=== PATIENT | female | born 1980 | race American Indian/Alaskan Native ===

== ENCOUNTER 2020-04-29 21:44 | Emergency (ER) | payer SELFPAY ==
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
[2020-04-29] MEDS ORDERED: Sodium Chloride 0.9% 1,000 ML IV ONE (22:09)
[2020-04-29] MEDS ORDERED: LORazepam 2 MG/ML SDV IVPUSH ONE (22:09)
[2020-04-29 22:23] LABS: ANION GAP 14.8 mEq/L (7-13); CHLORIDE,CL 105 mmol/L (98-107); SODIUM,NA 142 mmol/L (136-145)
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
== END 2020-04-29 23:02 ==
LOC: EDBD → DL.ED 21:44
DX: S00.83XA Contusion of other part of head, initial encounter (principal); S00.31XA Abrasion of nose, initial encounter; F10.129 Alcohol abuse with intoxication, unspecified; W01.10XA Fall on same level from slipping, tripping and stumbling with subsequent striking against unspecified object, initial encounter; W50.0XXA Accidental hit or strike by another person, initial encounter
CPT/HCPCS: 36415; 70450; 70486; 72125; 73030; 80053; 80307; 85025; 96374; 99284; J2060; J7030; 99283

== ENCOUNTER 2021-03-30 07:32 | Emergency (ER) | payer SELFPAY ==
--- NOTE | 2021-03-30 08:32 | EDM.PDOC ---
ED HPI GENERAL MEDICAL PROBLEM - General Chief Complaint: General Stated Complaint: FATIGUE Time Seen by Provider: 03/30/21 07:45 Source of Information: Reports: Patient, Old Records, RN, RN Notes Reviewed History Limitations: Reports: No Limitations - History of Present Illness INITIAL COMMENTS - FREE TEXT/NARRATIVE: Pt presents to ER with c/o fatigue, mild shaking, and feeling drowsy but cannot sleep. Pt admits that she drank alcohol last night. She takes multiple medications that have drowsy side effects, but she has taken all of them for "a long time". Pt refused to answer most standard Hx questions from the triage nurse and told her "those things are none of your business". Pt continued to be vague and elusive in answering HPI questions for me, but states she "just wants to have some tests to make sure everything is ok". She refuses to answer regarding drug use, and refuses to provide a urine specimen. Onset: Unknown/Unsure Location: Reports: Generalized Improves with: Reports: None Worsens with: Reports: None Associated Symptoms: Reports: No Other Symptoms - Related Data Allergies Allergy/AdvReac Type Severity Reaction Status Date / Time No Known Allergies Allergy Verified 03/30/21 08:03 Home Meds: Home Meds . [No Known Home Meds] 04/29/20 [History] Past Medical History - Past Health History Medical/Surgical History: Denies Medical/Surgical History HEENT History: Reports: None Cardiovascular History: Reports: None Respiratory History: Reports: None Gastrointestinal History: Reports: None Genitourinary History: Reports: None COAT TAILOR History: Reports: None Musculoskeletal History: Reports: None Neurological History: Reports: None Psychiatric History: Reports: Anxiety, Depression Endocrine/Metabolic History: Reports: None Hematologic History: Reports: None Immunologic History: Reports: None Oncologic (Cancer) History: Reports: None Dermatologic History: Reports: None - Infectious Disease History Infectious Disease History: Reports: None - Past Surgical History Head Surgeries/Procedures: Reports: None Social & Family History - Family History Family Medical History: No Pertinent Family History - Tobacco Use Tobacco Use Status *Q: Current Every Day Tobacco User Tobacco Use Within Last Twelve Months: Cigarettes - Caffeine Use Caffeine Use: Reports: None - Alcohol Use Days Per Week of Alcohol Use: 5 Number of Drinks Per Day: 10 Total Drinks Per Week: 50 - Recreational Drug Use Recreational Drug Use: No ED ROS GENERAL - Review of Systems Review Of Systems: Unable To Obtain Reason Not Obtained: Pt refuses to answer ROS questions ED EXAM, GENERAL - Physical Exam Exam: See Below Exam Limited By: No Limitations General Appearance: Alert, WD/WN, No Apparent Distress Eye Exam: Bilateral Eye: Normal Inspection Nose: Normal Inspection, Normal Mucosa, No Blood Throat/Mouth: Normal Lips, Normal Voice, No Airway Compromise Head: Atraumatic, Normocephalic Neck: Normal Inspection, Supple, Non-Tender, Full Range of Motion Respiratory/Chest: No Respiratory Distress, Lungs Clear, Normal Breath Sounds, No Accessory Muscle Use, Chest Non-Tender Cardiovascular: Regular Rate, Rhythm, Tachycardia GI/Abdominal: Normal Bowel Sounds, Soft, Non-Tender, No Organomegaly Back Exam: Normal Inspection, Full Range of Motion Extremities: Normal Inspection Neurological: Alert, Oriented, CN II-XII Intact, No Motor/Sensory Deficits Psychiatric: Anxious Skin Exam: Warm, Dry, Intact, Normal Color, No Rash Course - Vital Signs Last Recorded V/S: Last Vital Signs Temp 98.2 F 03/30/21 07:55 Pulse 121 H 03/30/21 07:55 Resp 18 03/30/21 07:55 BP 128/74 03/30/21 07:55 Pulse Ox 97 03/30/21 07:55 - Orders/Labs/Meds Orders: Active Orders 24 hr Category Date Time Status CBC WITH AUTO DIFF [HEME] Stat Lab 03/30/21 08:15 Ordered COMPREHENSIVE METABOLIC PN,CMP [CHEM] Stat Lab 03/30/21 08:15 Ordered DRUG SCREEN URINE BIORAD [URCHEM] Stat Lab 03/30/21 08:15 Ordered ETHANOL BLOOD MEDICAL [CHEM] Stat Lab 03/30/21 08:15 Ordered HCG QUALITATIVE,URINE [URCHEM] Stat Lab 03/30/21 08:15 Ordered MAGNESIUM [CHEM] Stat Lab 03/30/21 08:15 Ordered TSH ULTRASENSITIVE [CHEM] Stat Lab 03/30/21 08:15 Ordered UA RFX DAVID AND CULT IF INDIC [URIN] Stat Lab 03/30/21 08:15 Ordered - Re-Assessments/Exams Free Text/Narrative Re-Assessment/Exam: 03/30/21 08:35 Pt refused lab draw and urine specimen, then left AMA without waiting to discuss her decision to leave AMA with me. Departure - Departure Time of Disposition: 08:36 Disposition: Against Medical Advice 07 Condition: Undetermined Clinical Impression: Left against medical advice - Discharge Information *PRESCRIPTION DRUG MONITORING PROGRAM REVIEWED*: No *COPY OF PRESCRIPTION DRUG MONITORING REPORT IN PATIENT MARLENE: No Forms: ED Department Discharge, Refusal of Care AMA Sepsis Event Note (ED) - Evaluation Sepsis Screening Result: No Definite Risk - Focused Exam Vital Signs: Vital Signs Temp Pulse Resp BP Pulse Ox 03/30/21 07:55 98.2 F 121 H 18 128/74 97 - My Orders Last 24 Hours: My Active Orders 03/30/21 08:15 CBC WITH AUTO DIFF [HEME] Stat COMPREHENSIVE METABOLIC PN,CMP [CHEM] Stat DRUG SCREEN URINE BIORAD [URCHEM] Stat ETHANOL BLOOD MEDICAL [CHEM] Stat HCG QUALITATIVE,URINE [URCHEM] Stat MAGNESIUM [CHEM] Stat TSH ULTRASENSITIVE [CHEM] Stat UA RFX DAVID AND CULT IF INDIC [URIN] Stat - Assessment/Plan Last 24 Hours: My Active Orders 03/30/21 08:15 CBC WITH AUTO DIFF [HEME] Stat COMPREHENSIVE METABOLIC PN,CMP [CHEM] Stat DRUG SCREEN URINE BIORAD [URCHEM] Stat ETHANOL BLOOD MEDICAL [CHEM] Stat HCG QUALITATIVE,URINE [URCHEM] Stat MAGNESIUM [CHEM] Stat TSH ULTRASENSITIVE [CHEM] Stat UA RFX DAVID AND CULT IF INDIC [URIN] Stat
[2021-03-30 08:59] LABS: ANION GAP 13.3 mEq/L (7-13); CHLORIDE,CL 102 mmol/L (98-107); SODIUM,NA 140 mmol/L (136-145)
== END 2021-03-30 08:33 | disposition left against medical advice (07) ==
LOC: DL.ED 07:32
DX: R53.83 Other fatigue (principal); R40.0 Somnolence; Z72.0 Tobacco use
CPT/HCPCS: 36415; 80053; 80307; 83735; 84443; 85025; 99282; 99283

== ENCOUNTER 2021-03-30 11:34 | Emergency (ER) | payer SELFPAY ==
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
[2021-03-30 12:32] LABS: CHLORIDE,CL 102 mmol/L (98-107); SODIUM,NA 137 mmol/L (136-145)
[2021-03-30] MEDS ORDERED: Lactulose Soln 10 GM/15 ML 30 ML UD Cup PO ONE (12:39)
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
== END 2021-03-30 12:47 | disposition home or self-care (01) ==
LOC: DL.ED 11:34
DX: K59.00 Constipation, unspecified (principal)
CPT/HCPCS: 36415; 74019; 80053; 80305-QW; 80307; 81003; 81025; 82150; 83690; 85025; 99282; 99284-25

== ENCOUNTER 2022-04-05 10:18 | Inpatient (IN) | payer MEDICAID ==
[2022-04-05] MEDS ORDERED: Sodium Chloride 0.9% 10 ML Syringe FLUSH PRN (10:55)
[2022-04-05] MEDS ORDERED: MVI, Adult with Vitamin K 10 ML, Thiamine 100 MG, Folic Acid 1 MG in Lactated Ringers 1... IV ONE ×4 (10:56)
[2022-04-05] MEDS ORDERED: LORazepam 2 MG/ML SDV IVPUSH ONE (10:57)
[2022-04-05 11:23] LABS: ANION GAP 13.8 mEq/L (7-13); CHLORIDE,CL 103 mmol/L (98-107); SODIUM,NA 139 mmol/L (136-145)
[2022-04-05 11:32] LABS: PTT,PARTIAL THROMBOPLSTIN TIME 25.2 SEC (22.0-34.0)
[2022-04-05 11:49] LABS: AMPHETAMINES,URINE NEGATIVE (NEGATIVE); BARBITURATES,URINE NEGATIVE (NEGATIVE); BENZODIAZEPINE,URINE NEGATIVE (NEGATIVE); MDMA (ECSTASY), URINE NEGATIVE (NEGATIVE); METHADONE,URINE NEGATIVE (NEGATIVE); METHAMPHETAMINES,URINE NEGATIVE (NEGATIVE); OPIATES,URINE NEGATIVE (NEGATIVE); OXYCODONE,URINE NEGATIVE (NEGATIVE); PHENCYCLIDINE,URINE NEGATIVE (NEGATIVE); TCA,URINE NEGATIVE (NEGATIVE)
[2022-04-05] MEDS ORDERED: Docusate Sodium 100 MG Cap PO PRN (13:00)
[2022-04-05] MEDS ORDERED: Albuterol/Ipratropium 3.0-0.5 MG/3 ML Neb Soln NEB PRN (13:00)
[2022-04-05] MEDS ORDERED: Acetaminophen 325 MG Tab PO PRN (13:00)
[2022-04-05] MEDS ORDERED: Polyethylene Glycol 3350 Powder 17 GM Packet PO PRN (13:00)
[2022-04-05] MEDS ORDERED: Ketorolac 30 MG/ML SDV IVPUSH PRN (13:00)
[2022-04-05] MEDS ORDERED: Bisacodyl 5 MG Tab PO PRN (13:00)
[2022-04-05] MEDS ORDERED: HYDROmorphone 0.5 MG/0.5 ML Syringe IVPUSH PRN (13:00)
[2022-04-05] MEDS ORDERED: Magnesium Hydroxide 400 MG/5 ML Susp 30 ML Cup PO PRN (13:00)
[2022-04-05] MEDS ORDERED: Ondansetron 4 MG/2 ML SDV IVPUSH PRN (13:00)
[2022-04-05] MEDS ORDERED: cloNIDine 0.1 MG Tab PO PRN (13:02)
[2022-04-05] MEDS ORDERED: Haloperidol Lactate 5 MG/ML SDV IM PRN (13:02)
[2022-04-05] MEDS ORDERED: Flumazenil 0.1 MG/ML 5 ML MDV IVPUSH PRN (13:04)
[2022-04-05] MEDS ORDERED: LORazepam 2 MG/ML SDV IVPUSH PRN ×3 (13:04→13:26)
[2022-04-05] MEDS ORDERED: hydrALAZINE 20 MG/ML SDV IVPUSH PRN (13:05)
[2022-04-05] MEDS ORDERED: Metoprolol Tartrate 5 MG/5 ML SDV IVPUSH PRN (13:05)
[2022-04-05] MEDS ORDERED: Sodium Chloride 0.9% 1,000 ML IV SCH (13:45)
[2022-04-05] MEDS: LORazepam 1 MG Tab PO PRN ×2 (13:54→22:20)
[2022-04-05] MEDS: Nicotine 21 MG/24 Hr Patch TRDERM ONE ×2 (13:55→14:00)
[2022-04-05] MEDS: Famotidine 20 MG/2 ML SDV IVPUSH SCH (20:37)
[2022-04-05] MEDS: Check Patch *NICOTINE TRDERM SCH (20:40)
[2022-04-06 06:56] LABS: ANION GAP 11.1 mEq/L (7-13); CHLORIDE,CL 108 mmol/L (98-107); SODIUM,NA 142 mmol/L (136-145)
[2022-04-06] MEDS: Famotidine 20 MG/2 ML SDV IVPUSH SCH (08:21)
[2022-04-06] MEDS: Check Patch *NICOTINE TRDERM SCH (08:21)
[2022-04-06] MEDS ORDERED: Multivitamin Tab PO SCH (09:00)
[2022-04-06] MEDS ORDERED: Thiamine 100 MG Tab PO SCH (09:00)
[2022-04-06] MEDS ORDERED: Folic Acid 1 MG Tab PO SCH (09:00)
[2022-04-06] MEDS ORDERED: Nicotine 14 MG/24 Hr Patch TRDERM SCH ×2 (09:00)
== END 2022-04-06 10:40 | disposition left against medical advice (07) | DRG 894 ==
LOC: DL.ED 10:18 → DL.MS 12:29 → DL.ED 12:36
PROVIDERS: ADMIT Internal Medicine; ATTEND Internal Medicine
DX: F10.230 Alcohol dependence with withdrawal, uncomplicated (principal); R44.0 Auditory hallucinations; F17.210 Nicotine dependence, cigarettes, uncomplicated; F17.220 Nicotine dependence, chewing tobacco, uncomplicated; R73.9 Hyperglycemia, unspecified; F43.9 Reaction to severe stress, unspecified; F15.10 Other stimulant abuse, uncomplicated; Z20.822 Contact with and (suspected) exposure to COVID-19; F12.10 Cannabis abuse, uncomplicated; F41.9 Anxiety disorder, unspecified; F32.A Depression, unspecified; Z71.6 Tobacco abuse counseling
CPT/HCPCS: 36415; 80053; 80305-QW; 80307; 81001; 81025; 82150; 83690; 83735; 84443; 85025; 85610; 85730; 96365; 96375; 99285-25; A9270-GY; J2060; J3411; J3490; J7030; J7120; U0002

== ENCOUNTER 2022-04-06 14:02 | Emergency (ER) | payer SELFPAY | END 2022-04-06 16:58 | disposition left against medical advice (07) | LOC: DL.ED 14:02 | DX: Z53.21 Procedure and treatment not carried out due to patient leaving prior to being seen by health care provider (principal) ==

== ENCOUNTER 2024-06-01 21:45 | Emergency (ER) | payer MEDICAID ==
[2024-06-01] MEDS ORDERED: MVI, Adult with Vitamin K 10 ML, Folic Acid 1 MG, Thiamine 100 MG in Lactated Ringers 1... IV ONE (23:01)
[2024-06-01 23:18] LABS: BASOPHILS PERCENT AUTO 1.9 % (0.0-1.0); EOSINOPHILS PERCENT AUTO 2.9 % (1.0-3.0); HEMATOCRIT 38.7 % (37.0-47.0); HEMOGLOBIN 12.6 g/dL (12.0-16.0); MEAN CORPUSCULAR HGB CONC 32.6 g/dL (33.0-35.0); MEAN CORPUSCULAR VOLUME 95.1 fL (80-100); MONOCYTES PERCENT AUTO 7.5 % (2-8); NEUTROPHILS PERCENT AUTO 58.7 % (42.2-75.2); PLATELET COUNT,PLT 259 10^3/uL (150-450); RED BLOOD CELL COUNT 4.07 10^6/uL (4.2-5.4); WHITE BLOOD CELL COUNT,WBC 5.2 10^3/uL (5.0-10.0)
[2024-06-01 23:43] LABS: ALBUMIN 3.2 g/dL (3.4-5.0); ANION GAP 10.7 mEq/L (7-13); BILIRUBIN TOTAL 0.2 mg/dL (0.2-1.0); BUN/CREATININE RATIO 18.3 (No establ ref range); CALCIUM 7.6 mg/dL (8.5-10.1); CREATININE 0.6 mg/dL (0.55-1.02); EST CRCL DRUG DOSING (CG) 121.96 mL/min; MAGNESIUM 2.1 mg/dL (1.8-2.4); POTASSIUM,K 3.7 mmol/L (3.5-5.1); PROTEIN TOTAL,TP 6.8 g/dL (6.4-8.2)
[2024-06-01 23:44] LABS: A/G RATIO 0.89
[2024-06-01] MEDS: MVI, Adult with Vitamin K 10 ML, Folic Acid 1 MG, Thiamine 100 MG in Lactated Ringers 1... IV ONE (23:54)
[2024-06-01] MEDS: Sodium Chloride 0.9% 10 ML Syringe FLUSH PRN (23:55)
[2024-06-01] MEDS: Ondansetron 4 MG/2 ML SDV IVPUSH ONE (23:55)
[2024-06-02 01:25] LABS: AMPHETAMINES,URINE NEGATIVE (NEGATIVE); BARBITURATES,URINE NEGATIVE (NEGATIVE); BENZODIAZEPINE,URINE NEGATIVE (NEGATIVE); MDMA (ECSTASY), URINE NEGATIVE (NEGATIVE); METHADONE,URINE NEGATIVE (NEGATIVE); METHAMPHETAMINES,URINE NEGATIVE (NEGATIVE); OPIATES,URINE NEGATIVE (NEGATIVE); OXYCODONE,URINE NEGATIVE (NEGATIVE); PHENCYCLIDINE,URINE NEGATIVE (NEGATIVE); TCA,URINE NEGATIVE (NEGATIVE)
== END 2024-06-02 03:00 | disposition home or self-care (01) ==
LOC: DL.ED 21:45
DX: F10.129 Alcohol abuse with intoxication, unspecified (principal)
CPT/HCPCS: 36415; 80053; 80305; 80307; 81025; 83735; 85025; 96365; 96366; 96375; 99284; J2405; J3411; J7120; J3490

== ENCOUNTER 2024-12-28 02:12 | Emergency (ER) | payer MEDICAID ==
[2024-12-28 02:45] LABS: BASOPHILS PERCENT AUTO 0.7 % (0.0-1.0); EOSINOPHILS PERCENT AUTO 4.7 % (1.0-3.0); HEMOGLOBIN 14.6 g/dL (12.0-16.0); LYMPHOCYTES PERCENT AUTO 22.4 % (20.5-50.1); MEAN CORPUSCULAR HEMOGLOBIN 31.1 pg (27.0-34.0); MEAN CORPUSCULAR HGB CONC 32.4 g/dL (33.0-35.0); MEAN CORPUSCULAR VOLUME 95.7 fL (80-100); MONOCYTES PERCENT AUTO 7.3 % (2-8); NEUTROPHILS PERCENT AUTO 64.9 % (42.2-75.2); PLATELET COUNT,PLT 341 10^3/uL (150-450); WHITE BLOOD CELL COUNT,WBC 9.8 10^3/uL (5.0-10.0)
[2024-12-28 03:10] LABS: A/G RATIO 0.9; ALANINE AMINOTRANSFERASE,ALT 22 U/L (14-59); ALBUMIN 3.6 g/dL (3.4-5.0); ALKALINE PHOSPHATASE 110 U/L (46-116); ANION GAP 16.7 mEq/L (7-13); ASPARTATE AMNIOTRANSFERASE,AST 11 U/L (15-37); BILIRUBIN TOTAL 0.1 mg/dL (0.2-1.0); BLOOD UREA NITROGEN,BUN 11 mg/dL (7-18); BUN/CREATININE RATIO 13.8 (No establ ref range); CALCIUM 8.5 mg/dL (8.5-10.1); CARBON DIOXIDE,CO2 27 mmol/L (21-32); CHLORIDE,CL 108 mmol/L (98-107); EST CRCL DRUG DOSING (CG) 93.78 mL/min; ESTIMATED GFR 93 mL/min (>=60); GLUCOSE RANDOM 93 mg/dL (70-99); LIPASE 26 U/L (16-77); MAGNESIUM 2.1 mg/dL (1.8-2.4); POTASSIUM,K 3.7 mmol/L (3.5-5.1); PROTEIN TOTAL,TP 7.6 g/dL (6.4-8.2); SODIUM,NA 148 mmol/L (136-145)
[2024-12-28 03:11] LABS: LACTIC ACID 2.7 mmol/L (0.4-2.0)
[2024-12-28] MEDS: Sodium Chloride 0.9% 1,000 ML IV ONE (03:31)
[2024-12-28 06:47] LABS: APPEARANCE,URINE CLEAR (CLEAR); BILIRUBIN,URINE NEGATIVE (NEGATIVE); COLOR,URINE YELLOW (YELLOW); GLUCOSE,URINE NEGATIVE (NEGATIVE); KETONES,URINE NEGATIVE (NEGATIVE); LEUKOCYTE ESTERASE,URINE NEGATIVE (NEGATIVE); NITRITE,URINE NEGATIVE (NEGATIVE); OCCULT BLOOD,URINE NEGATIVE (NEGATIVE); PH,URINE 5.5 (5.0-9.0); PROTEIN,URINE NEGATIVE (NEGATIVE); UROBILINOGEN,URINE 0.2 mg/dL (0.2-1.0)
[2024-12-28 06:52] LABS: AMPHETAMINES,URINE NEGATIVE (NEGATIVE); BARBITURATES,URINE NEGATIVE (NEGATIVE); BENZODIAZEPINE,URINE NEGATIVE (NEGATIVE); MDMA (ECSTASY), URINE NEGATIVE (NEGATIVE); METHADONE,URINE NEGATIVE (NEGATIVE); METHAMPHETAMINES,URINE NEGATIVE (NEGATIVE); OPIATES,URINE NEGATIVE (NEGATIVE); OXYCODONE,URINE NEGATIVE (NEGATIVE); PHENCYCLIDINE,URINE NEGATIVE (NEGATIVE); TCA,URINE NEGATIVE (NEGATIVE)
== END 2024-12-28 07:13 | disposition still patient (30) ==
LOC: DL.ED 02:12
DX: F10.120 Alcohol abuse with intoxication, uncomplicated (principal); F17.210 Nicotine dependence, cigarettes, uncomplicated; Z86.16 Personal history of COVID-19; Z59.00 Homelessness unspecified; Z79.899 Other long term (current) drug therapy; Y90.6 Blood alcohol level of 120-199 mg/100 ml
CPT/HCPCS: 36415; 71045; 80053; 80305; 80307; 81003; 81025; 83605; 83690; 83735; 84484; 85025; 87428; 93005; 93010; 96360; 99284; 99285; J7030

== ENCOUNTER 2025-03-01 01:51 | Emergency (ER) | payer MEDICAID ==
[2025-03-01 02:06] LABS: BASOPHILS PERCENT AUTO 0.4 % (0.0-1.0); EOSINOPHILS PERCENT AUTO 4.5 % (1.0-3.0); HEMATOCRIT 42.9 % (37.0-47.0); HEMOGLOBIN 14.2 g/dL (12.0-16.0); MEAN CORPUSCULAR HEMOGLOBIN 31.3 pg (27.0-34.0); MEAN CORPUSCULAR HGB CONC 33.1 g/dL (33.0-35.0); MEAN CORPUSCULAR VOLUME 94.5 fL (80-100); MONOCYTES PERCENT AUTO 6.4 % (2-8); NEUTROPHILS PERCENT AUTO 66.7 % (42.2-75.2); PLATELET COUNT,PLT 328 10^3/uL (150-450); RED BLOOD CELL COUNT 4.54 10^6/uL (4.2-5.4); WHITE BLOOD CELL COUNT,WBC 8.5 10^3/uL (5.0-10.0)
[2025-03-01 02:21] LABS: A/G RATIO 0.9; ALANINE AMINOTRANSFERASE,ALT 22 U/L (14-59); ALBUMIN 3.4 g/dL (3.4-5.0); ALKALINE PHOSPHATASE 128 U/L (46-116); ANION GAP 16.9 mEq/L (7-13); ASPARTATE AMNIOTRANSFERASE,AST 10 U/L (15-37); BILIRUBIN TOTAL 0.1 mg/dL (0.2-1.0); BLOOD UREA NITROGEN,BUN 10 mg/dL (7-18); BUN/CREATININE RATIO 11.2 (No establ ref range); CALCIUM 8.2 mg/dL (8.5-10.1); CARBON DIOXIDE,CO2 25 mmol/L (21-32); CHLORIDE,CL 110 mmol/L (98-107); CREATININE 0.89 mg/dL (0.55-1.02); ETHANOL BLOOD MEDICAL 201 mg/dL (0); GLUCOSE RANDOM 116 mg/dL (70-99); POTASSIUM,K 3.9 mmol/L (3.5-5.1); SODIUM,NA 148 mmol/L (136-145)
[2025-03-01 02:22] LABS: ESTIMATED GFR 82 mL/min (>=60)
== END 2025-03-01 06:39 | disposition home or self-care (01) ==
LOC: DL.ED 01:51
DX: F10.120 Alcohol abuse with intoxication, uncomplicated (principal); Z79.899 Other long term (current) drug therapy; Y90.9 Presence of alcohol in blood, level not specified
CPT/HCPCS: 36415; 71045; 80053; 80307; 85025; 99284; 99285

== ENCOUNTER 2025-03-06 22:45 | Emergency (ER) | payer MEDICAID ==
[2025-03-06] MEDS ORDERED: Naloxone 2 MG/2 ML Syringe IVPUSH PRN (22:57)
[2025-03-06] MEDS: LORazepam 2 MG/ML SDV IVPUSH ONE (22:58)
[2025-03-06 23:12] LABS: BASOPHILS PERCENT AUTO 0.8 % (0.0-1.0); EOSINOPHILS PERCENT AUTO 2.8 % (1.0-3.0); HEMATOCRIT 44.2 % (37.0-47.0); HEMOGLOBIN 14.3 g/dL (12.0-16.0); LYMPHOCYTES PERCENT AUTO 25.4 % (20.5-50.1); MEAN CORPUSCULAR HEMOGLOBIN 31.1 pg (27.0-34.0); MEAN CORPUSCULAR HGB CONC 32.4 g/dL (33.0-35.0); MEAN CORPUSCULAR VOLUME 96.1 fL (80-100); MONOCYTES PERCENT AUTO 5.2 % (2-8); NEUTROPHILS PERCENT AUTO 65.8 % (42.2-75.2); PLATELET COUNT,PLT 279 10^3/uL (150-450); WHITE BLOOD CELL COUNT,WBC 7.9 10^3/uL (5.0-10.0)
[2025-03-06] MEDS: Thiamine 200 MG in Sodium Chloride 0.9% 1,000 ML IV ONE (23:20)
[2025-03-06 23:33] LABS: A/G RATIO 0.9; ALANINE AMINOTRANSFERASE,ALT 17 U/L (14-59); ALBUMIN 3.4 g/dL (3.4-5.0); ALKALINE PHOSPHATASE 114 U/L (46-116); ASPARTATE AMNIOTRANSFERASE,AST 14 U/L (15-37); BILIRUBIN TOTAL 0.1 mg/dL (0.2-1.0); BLOOD UREA NITROGEN,BUN 10 mg/dL (7-18); BUN/CREATININE RATIO 12.7 (No establ ref range); CALCIUM 8.1 mg/dL (8.5-10.1); CARBON DIOXIDE,CO2 28 mmol/L (21-32); CHLORIDE,CL 107 mmol/L (98-107); CREATININE 0.79 mg/dL (0.55-1.02); ETHANOL BLOOD MEDICAL 260 mg/dL (0); GLUCOSE RANDOM 109 mg/dL (70-99); SODIUM,NA 143 mmol/L (136-145)
[2025-03-06 23:34] LABS: ESTIMATED GFR 95 mL/min (>=60)
== END 2025-03-07 04:26 | disposition home or self-care (01) ==
LOC: DL.ED 22:45
DX: F10.120 Alcohol abuse with intoxication, uncomplicated (principal); Z79.899 Other long term (current) drug therapy; Z86.16 Personal history of COVID-19; Y90.8 Blood alcohol level of 240 mg/100 ml or more
CPT/HCPCS: 36415; 80053; 80307; 85025; 96365; 96375; 99283; 99285; J2060; J3411

== ENCOUNTER 2025-03-08 03:05 | Emergency (ER) | payer MEDICAID ==
[~2025-03-08 03:05] MED LIST: Sodium Chloride 0.9% 10 ML Syringe FLUSH PRN
[2025-03-08 03:08] LABS: BASOPHILS PERCENT AUTO 0.8 % (0.0-1.0); EOSINOPHILS PERCENT AUTO 3.9 % (1.0-3.0); HEMATOCRIT 41.2 % (37.0-47.0); HEMOGLOBIN 13.2 g/dL (12.0-16.0); LYMPHOCYTES PERCENT AUTO 28.3 % (20.5-50.1); MEAN CORPUSCULAR HEMOGLOBIN 30.7 pg (27.0-34.0); MEAN CORPUSCULAR VOLUME 95.8 fL (80-100); MONOCYTES PERCENT AUTO 8.2 % (2-8); NEUTROPHILS PERCENT AUTO 58.8 % (42.2-75.2); PLATELET COUNT,PLT 260 10^3/uL (150-450); WHITE BLOOD CELL COUNT,WBC 7.9 10^3/uL (5.0-10.0)
[2025-03-08 03:18] LABS: AMPHETAMINES,URINE NEGATIVE (NEGATIVE); BARBITURATES,URINE NEGATIVE (NEGATIVE); BENZODIAZEPINE,URINE POSITIVE (NEGATIVE); MDMA (ECSTASY), URINE NEGATIVE (NEGATIVE); METHADONE,URINE NEGATIVE (NEGATIVE); METHAMPHETAMINES,URINE NEGATIVE (NEGATIVE); OPIATES,URINE NEGATIVE (NEGATIVE); OXYCODONE,URINE NEGATIVE (NEGATIVE); PHENCYCLIDINE,URINE NEGATIVE (NEGATIVE); TCA,URINE NEGATIVE (NEGATIVE)
[2025-03-08 03:19] LABS: COLOR,URINE YELLOW (YELLOW)
[2025-03-08 03:20] LABS: APPEARANCE,URINE SLIGHTLY CLOUDY (CLEAR); BILIRUBIN,URINE NEGATIVE (NEGATIVE); GLUCOSE,URINE NEGATIVE (NEGATIVE); KETONES,URINE NEGATIVE (NEGATIVE); OCCULT BLOOD,URINE TRACE-INTACT (NEGATIVE); PH,URINE 6.5 (5.0-9.0); PROTEIN,URINE NEGATIVE (NEGATIVE); UROBILINOGEN,URINE 0.2 mg/dL (0.2-1.0)
[2025-03-08 03:21] LABS: LEUKOCYTE ESTERASE,URINE TRACE (NEGATIVE); NITRITE,URINE NEGATIVE (NEGATIVE)
[2025-03-08 03:37] LABS: ALANINE AMINOTRANSFERASE,ALT 18 U/L (14-59); ALBUMIN 3.3 g/dL (3.4-5.0); ALKALINE PHOSPHATASE 131 U/L (46-116); ASPARTATE AMNIOTRANSFERASE,AST 15 U/L (15-37); BILIRUBIN TOTAL 0.1 mg/dL (0.2-1.0); BLOOD UREA NITROGEN,BUN 9 mg/dL (7-18); BUN/CREATININE RATIO 12.7 (No establ ref range); CALCIUM 7.9 mg/dL (8.5-10.1); CARBON DIOXIDE,CO2 28 mmol/L (21-32); CHLORIDE,CL 108 mmol/L (98-107); CREATININE 0.71 mg/dL (0.55-1.02); ETHANOL BLOOD MEDICAL 82 mg/dL (0); GLUCOSE RANDOM 117 mg/dL (70-99); LIPASE 35 U/L (16-77); POTASSIUM,K 3.5 mmol/L (3.5-5.1); PROTEIN TOTAL,TP 6.7 g/dL (6.4-8.2)
[2025-03-08 03:41] LABS: ANION GAP 13.5 mEq/L (7-13); SODIUM,NA 146 mmol/L (136-145)
[2025-03-08 03:42] LABS: AMORPHOUS SEDIMENT,URINE FEW /HPF (NOT SEEN); BACTERIA,URINE MODERATE /HPF (0-FEW/HPF); EPITHELIAL CELLS,URINE MODERATE /HPF (NOT SEEN); MUCUS,URINE MANY /LPF (NOT SEEN); RBC,URINE 0-5 /HPF (0-5)
[2025-03-08 03:43] LABS: A/G RATIO 0.97; ESTIMATED GFR 107 mL/min (>=60)
[2025-03-08] MEDS: Ketorolac 30 MG/ML SDV IVPUSH ONE (04:30)
== END 2025-03-08 05:29 | disposition home or self-care (01) ==
LOC: DL.ED 03:05
DX: M54.50 Low back pain, unspecified (principal); Z79.899 Other long term (current) drug therapy; Z86.16 Personal history of COVID-19
CPT/HCPCS: 36415; 74176; 80053; 80305-QW; 80307; 81001; 83690; 83735; 85025; 87086; 96374; 99283; 99284-25; J1885

== ENCOUNTER 2025-03-25 12:43 | Emergency (ER) | payer MEDICAID ==
[2025-03-25 13:22] LABS: AMPHETAMINES,URINE NEGATIVE (NEGATIVE); APPEARANCE,URINE CLEAR (CLEAR); BARBITURATES,URINE NEGATIVE (NEGATIVE); BENZODIAZEPINE,URINE NEGATIVE (NEGATIVE); BILIRUBIN,URINE NEGATIVE (NEGATIVE); COLOR,URINE YELLOW (YELLOW); GLUCOSE,URINE NEGATIVE (NEGATIVE); KETONES,URINE 15 (NEGATIVE); LEUKOCYTE ESTERASE,URINE NEGATIVE (NEGATIVE); MDMA (ECSTASY), URINE NEGATIVE (NEGATIVE); METHADONE,URINE NEGATIVE (NEGATIVE); METHAMPHETAMINES,URINE NEGATIVE (NEGATIVE); NITRITE,URINE NEGATIVE (NEGATIVE); OCCULT BLOOD,URINE TRACE-INTACT (NEGATIVE); OPIATES,URINE NEGATIVE (NEGATIVE); OXYCODONE,URINE NEGATIVE (NEGATIVE); PH,URINE 7.5 (5.0-9.0); PHENCYCLIDINE,URINE NEGATIVE (NEGATIVE); PROTEIN,URINE NEGATIVE (NEGATIVE); TCA,URINE NEGATIVE (NEGATIVE); UROBILINOGEN,URINE 0.2 mg/dL (0.2-1.0)
[2025-03-25] MEDS ORDERED: Sodium Chloride 0.9% 10 ML Syringe FLUSH PRN (13:23)
[2025-03-25 13:33] LABS: RBC,URINE 0-5 /HPF (0-5); WBC,URINE 0-5 /HPF (0-5/HPF)
[2025-03-25 13:34] LABS: BACTERIA,URINE FEW /HPF (0-FEW/HPF); EPITHELIAL CELLS,URINE MODERATE /HPF (NOT SEEN); MUCUS,URINE FEW /LPF (NOT SEEN)
[2025-03-25 13:38] LABS: BASOPHILS PERCENT AUTO 0.5 % (0.0-1.0); EOSINOPHILS PERCENT AUTO 0.6 % (1.0-3.0); HEMATOCRIT 41.7 % (37.0-47.0); LYMPHOCYTES PERCENT AUTO 7.7 % (20.5-50.1); MEAN CORPUSCULAR HEMOGLOBIN 31.6 pg (27.0-34.0); MEAN CORPUSCULAR HGB CONC 33.6 g/dL (33.0-35.0); MEAN CORPUSCULAR VOLUME 94.1 fL (80-100); MONOCYTES PERCENT AUTO 5.4 % (2-8); NEUTROPHILS PERCENT AUTO 85.8 % (42.2-75.2); PLATELET COUNT,PLT 348 10^3/uL (150-450); RED BLOOD CELL COUNT 4.43 10^6/uL (4.2-5.4); WHITE BLOOD CELL COUNT,WBC 9.6 10^3/uL (5.0-10.0)
[2025-03-25 13:57] LABS: SODIUM,NA 141 mmol/L (136-145)
[2025-03-25 14:03] LABS: PROTHROMBIN TIME 10.1 SEC (9.0-12.0); PTT,PARTIAL THROMBOPLSTIN TIME 25.2 SEC (22.0-34.0)
[2025-03-25 14:11] LABS: ALANINE AMINOTRANSFERASE,ALT 34 U/L (14-59); ALKALINE PHOSPHATASE 114 U/L (46-116); ANION GAP 16.7 mEq/L (7-13); ASPARTATE AMNIOTRANSFERASE,AST 30 U/L (15-37); BILIRUBIN TOTAL 0.8 mg/dL (0.2-1.0); CARBON DIOXIDE,CO2 25 mmol/L (21-32); CHLORIDE,CL 103 mmol/L (98-107); POTASSIUM,K 3.7 mmol/L (3.5-5.1)
[2025-03-25 14:18] LABS: A/G RATIO 0.94; ALBUMIN 3.4 g/dL (3.4-5.0); CALCIUM 8.3 mg/dL (8.5-10.1); CREATININE 0.62 mg/dL (0.55-1.02); GLUCOSE RANDOM 88 mg/dL (70-99); LIPASE 23 U/L (16-77)
[2025-03-25 14:26] LABS: MAGNESIUM 1.5 mg/dL (1.8-2.4)
[2025-03-25 14:31] LABS: BLOOD UREA NITROGEN,BUN 7 mg/dL (7-18); BUN/CREATININE RATIO 11.3 (No establ ref range); ESTIMATED GFR 113 mL/min (>=60); ETHANOL BLOOD MEDICAL < 3 mg/dL (0)
[2025-03-25] MEDS: Ketorolac 30 MG/ML SDV IVPUSH ONE (15:27)
== END 2025-03-25 15:26 | disposition home or self-care (01) ==
LOC: DL.ED 12:43
DX: D25.9 Leiomyoma of uterus, unspecified (principal); M54.9 Dorsalgia, unspecified; Z79.899 Other long term (current) drug therapy
CPT/HCPCS: 36415; 74176; 80053; 80305; 80307; 81001; 81025; 82140; 83690; 83735; 85025; 85610; 85730; 96374; 99284; J1885

== ENCOUNTER 2025-04-13 08:56 | Emergency (ER) | payer MEDICAID | END 2025-04-13 10:48 | disposition left against medical advice (07) | LOC: DL.ED 08:56 | DX: T50.905A Adverse effect of unspecified drugs, medicaments and biological substances, initial encounter (principal); Z79.899 Other long term (current) drug therapy | CPT/HCPCS: 99283; 99284 ==